=== PATIENT | male | born 1975 | race Caucasian/White ===

== ENCOUNTER 2016-11-20 11:20 | Outpatient (CLI) | payer MEDICAID | END 2016-11-20 11:21 | disposition home or self-care (01) | DX: R17 Unspecified jaundice (principal); K76.0 Fatty (change of) liver, not elsewhere classified ==

== ENCOUNTER 2018-02-19 13:57 | Emergency (ER) | payer MEDICAID ==
[2018-02-19 14:04] VITALS: BP 145/92
--- NOTE | 2018-02-19 14:28 | ED Physician Documentation ---
History of Present Illness - Stated complaint Stated Complaint: TOOTH PX - Chief complaint Chief Complaint: Heent - Additonal information Additional information: hx from pt very nice 42 male present to ED with his he has dental decay he has mild upper left dental pain she looked in his mouth and noted swelling and erythema they are concerned about infection pain is mild - does not want pain meds no fever he has a dental appt next week Review of Systems Constitutional: denies: Fever Throat: reports: Dental pain / toothache Immunocompromised: denies: Immunocompromised PD PAST MEDICAL HISTORY - Past Medical History Past Medical History: Yes Cardiovascular: None Respiratory: None Neuro: None Endocrine/Autoimmune: None GI: None : None HEENT: None Psych: Anxiety Musculoskeletal: None Derm: None - Past Surgical History Past Surgical History: No - Present Medications Home Medications: Ambulatory Orders Medication Instructions Recorded Confirmed Clindamycin [Cleocin] 300 mg PO Q6H 7 Days capsule 02/19/18 - Allergies Allergies/Adverse Reactions: Allergies Allergy/AdvReac Type Severity Reaction Status Date / Time amoxicillin Allergy Rash Verified 02/19/18 14:04 - Social History Does the pt smoke?: Yes Smoking Status: Current every day smoker Does the pt drink ETOH?: Yes Does the pt have substance abuse?: No - Immunizations Immunizations are current?: Yes - POLST Patient has POLST: No PD ED PE NORMAL - Vitals Vital signs reviewed: Yes - HEENT HEENT: No: Dentition benign (diffuse mod decay and gum recession, upper left canine premolar with erythematous tender gums, no abscess to rula, n trismus, no facial swelling) - Cardiac Cardiac: RRR - Respiratory Respiratory: No respiratory distress, Clear bilaterally Results - Vitals Vitals: Vital Signs - 24 hr 02/19/18 14:01 Temperature 36.3 C L Heart Rate 93 Respiratory 15 Rate Blood Pressure 145/92 H O2 Saturation 97 Departure - Departure Disposition: 01 Home, Self Care Clinical Impression: Dental infection Condition: Good Instructions: ED Tooth Pain Prescriptions: Clindamycin [Cleocin] 300 mg PO Q6H 7 Days capsule
== END 2018-02-19 14:38 | disposition home or self-care (01) ==
LOC: ED 13:57
DX: K04.7 Periapical abscess without sinus (principal); F17.200 Nicotine dependence, unspecified, uncomplicated
CPT/HCPCS: 99283

== ENCOUNTER 2023-06-12 10:54 | Emergency (ER) | payer MEDICAID ==
[2023-06-12 11:31] LABS: BASOPHILS % (AUTO) 0.6 %; EOSINOPHILS # (AUTO) 0.1 10^3/uL (0.0-0.7); EOSINOPHILS % (AUTO) 0.9 %; HCT - HEMATOCRIT 31.4 % (42.0-52.0); HGB - HEMOGLOBIN 11.1 g/dL (14.0-18.0); LYMPHOCYTES % (AUTO) 14.9 %; MEAN CORPUSCULAR HEMOGLOBIN 34.5 pg (27.0-31.0); MEAN CORPUSCULAR HGB CONC 35.4 g/dL (32.0-36.0); MEAN CORPUSCULAR VOLUME 97.5 fL (80.0-94.0); MEAN PLATELET VOLUME 8.5 fL (7.4-11.4); MONOCYTES # (AUTO) 0.7 10^3/uL (0.0-1.0); MONOCYTES % (AUTO) 11.3 %; NEUTROPHILS # (AUTO) 4.7 10^3/uL (1.5-6.6); NEUTROPHILS % (AUTO) 71.8 %; PLT - PLATELET COUNT 420 10^3/uL (130-450); RED BLOOD COUNT 3.22 10^6/uL (4.70-6.10); RED CELL DISTRIBUTION WIDTH 12.3 % (12.0-15.0); WHITE BLOOD COUNT 6.6 x10^3/uL (4.8-10.8)
[2023-06-12 11:42] LABS: ALBUMIN 3.4 g/dL (3.2-5.5); BILIRUBIN,TOTAL 2.1 mg/dL (0.2-1.0); CALCIUM 8.9 mg/dL (8.5-10.3); CREATININE 0.8 mg/dL (0.6-1.3); POTASSIUM 3.5 mmol/L (3.5-4.5); TOTAL PROTEIN 6.9 g/dL (6.4-8.9)
--- NOTE | 2023-06-12 11:43 | ED Physician Documentation ---
History of Present Illness - Stated complaint Stated Complaint: LT LEG PX/SWELLING/ANXIETY - Chief complaint Chief Complaint: General - Additonal information Additional information: 47-year-old male returns to the emergency department for evaluation of left leg swelling, petechial/purpuric appearing rash on his bilateral lower extremities, anorexia, fatigue, weight loss and anxiety. He was seen at this emergency department on June 01 for similar. At that time found to have isolated findings of hyponatremia with a sodium of 127 and a mildly elevated bilirubin. Bilateral ultrasounds were negative for DVT in the lower extremities. He was advised follow-up with PCP and to increase salt intake. Since being seen he feels that his anxiety, anorexia are worse. He continues to have a petechial/purpuric appearing rash on his lower extremities that he has had for several months. He is not able to see a PCP until late July. He has been using compression stockings. Over the last 3 to 4 days he has developed bruising on the left medial thigh and below the ankle on the left leg. On presentation he is alert, thin appearing. He appears anxious. He is afebrile. No tachycardia or hypotension. Room air saturations 100%. Review of Systems Constitutional: reports: Fatigue. denies: Fever, Chills Ears: reports: Reviewed and negative Nose: reports: Reviewed and negative Throat: reports: Reviewed and negative Cardiac: reports: Reviewed and negative Respiratory: reports: Reviewed and negative GI: denies: Other (anorexia) : reports: Reviewed and negative Skin: reports: Rash Musculoskeletal: reports: Reviewed and negative Neurologic: reports: Reviewed and negative PD PAST MEDICAL HISTORY - Past Medical History Cardiovascular: None Respiratory: None Endocrine/Autoimmune: None GI: None : None HEENT: None Psych: Anxiety Musculoskeletal: None Derm: None - Past Surgical History Past Surgical History: No - Present Medications Home Medications: Ambulatory Orders Medication Instructions Recorded Confirmed hydrOXYzine pamoate [Hydroxyzine 25 mg PO TID PRN #30 cap 06/12/23 Pamoate] predniSONE [Deltasone] 40 mg PO DAILY 7 Days #14 tablet 06/12/23 - Allergies Allergies/Adverse Reactions: Allergies Allergy/AdvReac Type Severity Reaction Status Date / Time amoxicillin Allergy Rash Verified 06/12/23 11:03 - Social History Does the pt smoke?: Yes Smoking Status: Current every day smoker Does the pt drink ETOH?: Yes Does the pt have substance abuse?: No - Immunizations Immunizations are current?: Yes - POLST Patient has POLST: No PD ED PE NORMAL - General General: Alert and oriented X 3. No: No acute distress (anxious) - HEENT HEENT: Atraumatic, Moist mucous membranes - Neck Neck: Supple, no meningeal sign, No adenopathy - Cardiac Cardiac: RRR, No murmur, No gallop - Respiratory Respiratory: No respiratory distress, Clear bilaterally - Abdomen Abdomen: Normal bowel sounds, Soft - Back Back: No CVA TTP - Derm Derm: Normal color, Warm and dry. No: No rash (Flat nonblanchable petechiae/purpura of the bilateral lower extremities measuring between 2 and 4 mm. Nonvesicular. Nonpainful. Ecchymosis noted left medial thigh and below the left ankle) - Extremities Extremities: No deformity, No tenderness to palpate, No edema (Mild swelling noted of the left leg), No calf tenderness / cord - Neuro Neuro: Alert and oriented X 3, irrigation foreman 2-12 intact Eye Opening: Spontaneous Motor: Obeys Commands Verbal: Oriented GCS Score: 15 Results - Vitals Vitals: Vital Signs - 24 hr 06/12/23 10:59 Temperature 36.4 C L Heart Rate 98 Respiratory 20 Rate Blood Pressure 136/78 H O2 Saturation 100 Oxygen O2 Source Room air - Labs Labs: Laboratory Tests 06/12/23 06/12/23 06/12/23 11:20 11:20 11:20 WBC 6.6 RBC 3.22 L Hgb 11.1 L Hct 31.4 L MCV 97.5 H MCH 34.5 H MCHC 35.4 RDW 12.3 Plt Count 420 MPV 8.5 Neut # (Auto) 4.7 Lymph # (Auto) 1.0 L [place] # (Auto) 0.7 Eos # (Auto) 0.1 Baso # (Auto) 0.0 Absolute Nucleated RBC 0.00 Nucleated RBC % 0.0 ESR Sodium 127 L Potassium 3.5 Chloride 97 L Carbon Dioxide 21 Anion Gap 9.0 BUN 9 Creatinine 0.8 Estimated GFR (MDRD) 103 Glucose 114 H Calcium 8.9 Total Bilirubin 2.1 H AST 18 ALT 13 Alkaline Phosphatase 59 C-Reactive Protein B-Natriuretic Peptide 54 Total Protein 6.9 Albumin 3.4 Globulin 3.5 Albumin/Globulin Ratio 1.0 Lipase 16 TSH Free T4 Direct Urine Color Urine Clarity Urine pH Ur Specific [place] Urine Protein Urine Glucose (UA) Urine Ketones Urine Occult Blood Urine Nitrite Urine Bilirubin Urine Urobilinogen Ur Leukocyte Esterase Urine RBC Urine WBC Ur Squamous Epith Cells Urine Bacteria Ur Microscopic Review Urine Culture Comments 06/12/23 06/12/23 06/12/23 11:20 11:20 12:23 WBC RBC Hgb Hct MCV MCH MCHC RDW Plt Count MPV Neut # (Auto) Lymph # (Auto) [place] # (Auto) Eos # (Auto) Baso # (Auto) Absolute Nucleated RBC Nucleated RBC % ESR 46 H Sodium Potassium Chloride Carbon Dioxide Anion Gap BUN Creatinine Estimated GFR (MDRD) Glucose Calcium Total Bilirubin AST ALT Alkaline Phosphatase C-Reactive Protein 8.3 B-Natriuretic Peptide Total Protein Albumin Globulin Albumin/Globulin Ratio Lipase TSH 2.71 Free T4 Direct 0.77 Urine Color Urine Clarity Urine pH Ur Specific [place] Urine Protein Urine Glucose (UA) Urine Ketones Urine Occult Blood Urine Nitrite Urine Bilirubin Urine Urobilinogen Ur Leukocyte Esterase Urine RBC Urine WBC Ur Squamous Epith Cells Urine Bacteria Ur Microscopic Review Urine Culture Comments 06/12/23 12:47 WBC RBC Hgb Hct MCV MCH MCHC RDW Plt Count MPV Neut # (Auto) Lymph # (Auto) [place] # (Auto) Eos # (Auto) Baso # (Auto) Absolute Nucleated RBC Nucleated RBC % ESR Sodium Potassium Chloride Carbon Dioxide Anion Gap BUN Creatinine Estimated GFR (MDRD) Glucose Calcium Total Bilirubin AST ALT Alkaline Phosphatase C-Reactive Protein B-Natriuretic Peptide Total Protein Albumin Globulin Albumin/Globulin Ratio Lipase TSH Free T4 Direct Urine Color DARK YELLOW Urine Clarity CLEAR Urine pH 5.5 Ur Specific [place] 1.020 Urine Protein NEGATIVE Urine Glucose (UA) NEGATIVE Urine Ketones NEGATIVE Urine Occult Blood SMALL H Urine Nitrite NEGATIVE Urine Bilirubin NEGATIVE Urine Urobilinogen 1 (NORMAL) Ur Leukocyte Esterase NEGATIVE Urine RBC 0-5 Urine WBC 0-3 Ur Squamous Epith Cells NONE SEEN Urine Bacteria Rare Ur Microscopic Review INDICATED Urine Culture Comments NOT INDICATED - Rads (name of study) cxr Relevant Findings:: EMP independent interpretation of test (No acute cardiopulmonary process) PD Medical Decision Making - ED course Complexity details: reviewed results, re-evaluated patient, considered differential, d/w patient ED course: 47-year-old male return to the emergency department for evaluation of left leg swelling, petechiae/purpura of the bilateral lower extremities, anorexia and fatigue and anxiety. Seen on June 01 for similar found to have mild hyponatremia and a mildly elevated bilirubin. Patient has not yet been able to establish care with a PCP. On presentation the emergency department he is anxious though otherwise well- appearing. He had unremarkable vital signs without fever tachycardia or hypotension. Clinical exam reveals diffuse petechiae/purpura on the bilateral lower extremities that are subacute and have been present for many months. He has however developed over the last week some bruising of the left medial thigh and bruising below the left ankle. When seen last week he was noted to have a mild hyponatremia with a sodium of 127. His labs were otherwise benign with no anemia. Today I repeated CBC, electrolytes, CRP, sed rate, added SUPRIYA and complement as well as urinalysis. Today I note he has developed a new anemia with a hemoglobin of 11.1. No thrombocytopenia. He has an elevated sed rate of 46 and a CRP of 8.3. He continues to have a mild hyponatremia with a sodium of 127. Normal renal function. Bilirubin today is 2.1 mildly reduced from last week at 2.3. His TSH and T4 were both normal. Urinalysis today shows no signs of infection and no proteinuria. 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 Complement and C4 are pending. He is given the name of Jessenia Augustin the physician assigned to see patient as an ER follow-up this upcoming week. Would like his labs to be repeated. In order to begin treatment of the vasculitis he will be started on a week of the prednisone 40 mg each day. The patient is also complaining of anxiety. He was given a single dose of hydroxyzine today in the emergency department which she felt improved the symptoms. The usual emergent return precautions were discussed for failure symptoms to resolve or markedly worsen It should be noted that in the initial ED encounter on June 01 he did have bilateral lower extremity ultrasounds which did not show any evidence of DVT. Departure - Departure Disposition: 01 Home, Self Care Clinical Impression: Hyponatremia, Elevated bilirubin, Vasculitis, Anxiety Anemia Qualifiers: Anemia type: unspecified type Qualified Code(s): D64.9 - Anemia, unspecified Follow-Up: Юлия Augustin MD [Provider Admit Priv/Credential] - Prescriptions: predniSONE [Deltasone] 40 mg PO DAILY 7 Days #14 tablet hydrOXYzine pamoate [Hydroxyzine Pamoate] 25 mg PO TID PRN #30 cap PRN Reason: Anxiety Comments: Fermin dunn came to the emergency department today because you continue to have some swelling of the left leg, new bruising, anxiety, anorexia and fatigue. You have had a subacute rash on both your lower extremities that resembles a condition called vasculitis. I rechecked your labs today and you have developed a new anemia with a hemoglobin of 11.1. Several weeks ago it was 15. Your potassium today is normal. Your sodium was 127 which is unchanged. I did check some inflammatory markers including an ESR and CRP today. These are both elevated. Because vasculitis can be caused by other conditions you have pending labs called an SUPRIYA as well as a complement. We will not have these results for us several days. My concern is that the vasculitis could be contributing to the rash, anemia and fatigue as well as the hyponatremia. This is not a definitive diagnosis it is merely my suspicion at this point but I think it would be safe to assume you have developed a vasculitis and start you on a course of steroids. As such I have ordered prednisone to be taken daily for the next week. I have also ordered hydroxyzine that you can use 2-3 times a day to the help with anxiety. I have given the name of Jessenia Augustin physician in [place] who is scheduled to see patients in follow-up this week for the ER. When you call that clinic let them know it is an ER follow-up. It is important that you have your labs rechecked in this week in regards to your anemia. If you are unable to follow-up with your primary care doctor this can be done through one of the local walk-in clinics. I suspect in the future you are going to require referral to a room service food server. And this referral will have to be done through a primary care doctor. Please return to the ER if you find that you are having worsening symptoms. Forms: PCP List
[2023-06-12 12:05] LABS: CRP - C-REACTIVE PROTEIN 8.3 mg/dL (<0.5)
--- NOTE | 2023-06-12 12:06 | XRAY Report ---
PROCEDURE: Chest 1 View X-Ray INDICATIONS: leg swelling TECHNIQUE: One view of the chest was acquired. COMPARISON: None. FINDINGS: Surgical changes and devices: None. Lungs and pleura: No pleural effusions or pneumothorax. Lungs are clear. Mediastinum: Mediastinal contours appear normal. Heart size is normal. Bones and chest wall: No suspicious bony lesions. Overlying soft tissues appear unremarkable. IMPRESSION: No acute cardiopulmonary process. Reviewed by: Giovanni Luis MD on 06/12/2023 11:05 AM RICKEY Approved by: Giovanni Luis MD on 06/12/2023 11:05 AM RICKEY Station ID: [id number]
[2023-06-12] MEDS ORDERED: hydrOXYzine PAMOATE 25 MG CAPSULE PO STA (12:27)
[2023-06-12 12:59] LABS: BILIRUBIN,URINE NEGATIVE (NEGATIVE); GLUCOSE, URINE (UA) NEGATIVE (NEGATIVE); KETONES,URINE (UA) NEGATIVE (NEGATIVE); LEUKOCYTE ESTERASE, URINE NEGATIVE (NEGATIVE); NITRITE,URINE NEGATIVE (NEGATIVE); OCCULT BLOOD,URINE SMALL (NEGATIVE); PH,URINE 5.5 PH (5.0-7.5); PROTEIN,URINE NEGATIVE (NEGATIVE); UROBILINOGEN,URINE 1 (NORMAL) E.U./dL (NORMAL)
[2023-06-12 13:12] LABS: BACTERIA,URINE Rare /HPF (None Seen); CLARITY,URINE CLEAR (CLEAR); RBC,URINE 0-5 /HPF (0-5); SQUAMOUS EPITHELIAL CELL,UR NONE SEEN (<= Few); WBC,URINE 0-3 /HPF (0-3)
[2023-06-12 14:18] VITALS: BP 128/82
[2023-06-15 15:08] LABS: ANTI-DNA (DS) AB QN <1 IU/mL (0-9); CENTROMERE B ANTIBODIES <0.2 AI (0.0-0.9); CHROMATIN ANTIBODIES <0.2 AI (0.0-0.9); JO-1 AB <0.2 AI (0.0-0.9); RIBOSOMAL P ANTIBODIES <0.2 AI (0.0-0.9); RNP ANTIBODIES <0.2 AI (0.0-0.9); SCLERODERMA-70 ANTIBODIES 1.8 AI (0.0-0.9); SJOGREN'S ANTI-SS-A <0.2 AI (0.0-0.9); SJOGREN'S ANTI-SS-B <0.2 AI (0.0-0.9); SMITH ANTIBODIES <0.2 AI (0.0-0.9); SMITH/RNP ANTIBODIES <0.2 AI (0.0-0.9)
== END 2023-06-12 14:12 | disposition home or self-care (01) ==
LOC: ED 10:54
DX: I77.6 Arteritis, unspecified (principal); D64.9 Anemia, unspecified; E87.1 Hypo-osmolality and hyponatremia; E80.7 Disorder of bilirubin metabolism, unspecified; R53.83 Other fatigue; F41.9 Anxiety disorder, unspecified; F17.200 Nicotine dependence, unspecified, uncomplicated
CPT/HCPCS: 36415; 71045; 80053; 81001; 83690; 83880; 84439; 84443; 85025; 85651; 86140; 86160; 86225; 86235; 99284; A9270; 81003; 83516; 87086

== ENCOUNTER 2023-06-17 13:11 | Outpatient (CLI) | payer MEDICAID ==
[2023-06-17 13:42] LABS: BILIRUBIN,URINE NEGATIVE (NEGATIVE); GLUCOSE, URINE (UA) NEGATIVE (NEGATIVE); KETONES,URINE (UA) NEGATIVE (NEGATIVE); LEUKOCYTE ESTERASE, URINE NEGATIVE (NEGATIVE); NITRITE,URINE NEGATIVE (NEGATIVE); OCCULT BLOOD,URINE NEGATIVE (NEGATIVE); PH,URINE 5.5 PH (5.0-7.5); PROTEIN,URINE NEGATIVE (NEGATIVE); UROBILINOGEN,URINE 0.2 (NORMAL) E.U./dL (NORMAL)
[2023-06-17 13:45] LABS: ABSOLUTE RETICS # AUTO 0.133 10^6/uL (0.020-0.110); BASOPHILS # (AUTO) 0.1 10^3/uL (0.0-0.1); BASOPHILS % (AUTO) 0.8 %; EOSINOPHILS # (AUTO) 0.1 10^3/uL (0.0-0.7); HGB - HEMOGLOBIN 9.9 g/dL (14.0-18.0); LYMPHOCYTES # (AUTO) 1.8 10^3/uL (1.5-3.5); LYMPHOCYTES % (AUTO) 28.6 %; MEAN CORPUSCULAR HEMOGLOBIN 33.4 pg (27.0-31.0); MEAN CORPUSCULAR VOLUME 101.4 fL (80.0-94.0); MEAN PLATELET VOLUME 8.3 fL (7.4-11.4); MONOCYTES # (AUTO) 0.7 10^3/uL (0.0-1.0); MONOCYTES % (AUTO) 11.9 %; NEUTROPHILS # (AUTO) 3.5 10^3/uL (1.5-6.6); NEUTROPHILS % (AUTO) 57.4 %; PLT - PLATELET COUNT 605 10^3/uL (130-450); RED BLOOD COUNT 2.96 10^6/uL (4.70-6.10); WHITE BLOOD COUNT 6.1 x10^3/uL (4.8-10.8)
[2023-06-17 13:56] LABS: CLARITY,URINE CLEAR (CLEAR)
[2023-06-17 13:57] LABS: BACTERIA,URINE None Seen /HPF (None Seen); RBC,URINE None Seen /HPF (0-5); SQUAMOUS EPITHELIAL CELL,UR NONE SEEN (<= Few); WBC,URINE 0-3 /HPF (0-3)
[2023-06-17 14:02] LABS: ALBUMIN 3.7 g/dL (3.2-5.5); BILIRUBIN,TOTAL 1.8 mg/dL (0.2-1.0); CALCIUM 8.8 mg/dL (8.5-10.3); CREATININE 0.6 mg/dL (0.6-1.3); POTASSIUM 3.5 mmol/L (3.5-4.5); TOTAL PROTEIN 7.5 g/dL (6.4-8.9)
[2023-06-17 14:23] LABS: FERRITIN 408.2 ng/mL (23.9-336.2)
== END 2023-06-17 13:12 | disposition home or self-care (01) ==
LOC: LAB 13:11
PROVIDERS: ATTEND Emergency Medicine
DX: D64.9 Anemia, unspecified (principal); R17 Unspecified jaundice; I77.6 Arteritis, unspecified
CPT/HCPCS: 36415; 80053; 81001; 82607; 82728; 82746; 83540; 83690; 84466; 85025; 85045; 87086

== ENCOUNTER 2023-06-17 16:01 | Emergency (ER) | payer MEDICAID ==
--- NOTE | 2023-06-17 16:25 | ED Physician Documentation ---
History of Present Illness - Stated complaint Stated Complaint: ABNORMAL LAB WORK - Chief complaint Chief Complaint: General - History obtained from History obtained from: Patient Review of Systems Constitutional: denies: Fever, Chills Ears: denies: Loss of hearing Cardiac: denies: Chest pain / pressure, Palpitations, Calf pain Respiratory: denies: Dyspnea, Cough, Wheezing GI: denies: Abdominal Pain, Nausea, Vomiting Musculoskeletal: denies: Neck pain, Back pain, Extremity pain Neurologic: denies: Generalized weakness, Focal weakness, Numbness PD PAST MEDICAL HISTORY - Past Medical History Cardiovascular: None Respiratory: None Endocrine/Autoimmune: None GI: None : None HEENT: None Psych: Anxiety Musculoskeletal: None Derm: None - Past Surgical History Past Surgical History: No - Present Medications Home Medications: Ambulatory Orders Medication Instructions Recorded Confirmed hydrOXYzine pamoate [Hydroxyzine 25 mg PO TID PRN #30 cap 06/12/23 06/17/23 Pamoate] predniSONE [Deltasone] 40 mg PO DAILY 7 Days #14 tablet 06/12/23 06/17/23 - Allergies Allergies/Adverse Reactions: Allergies Allergy/AdvReac Type Severity Reaction Status Date / Time amoxicillin Allergy Rash Verified 06/12/23 11:03 - Social History Does the pt smoke?: Yes Smoking Status: Current every day smoker Does the pt drink ETOH?: Yes Does the pt have substance abuse?: No - Immunizations Immunizations are current?: Yes - POLST Patient has POLST: No PD ED PE NORMAL - Vitals Vital signs reviewed: Yes - General General: Alert and oriented X 3, Well developed/nourished, Other (appears frail, older than stated age) - Cardiac Cardiac: RRR, No murmur, Strong equal pulses - Abdomen Abdomen: Soft, Non tender, Non distended - Derm Derm: Normal color, Warm and dry, Other (petichial rash on legs, similar to previous) - Extremities Extremities: No deformity, No tenderness to palpate - Neuro Neuro: Alert and oriented X 3, engraved roller inspector 2-12 intact, No motor deficit, Normal speech - Psych Psych: Normal mood, Normal affect Results - Vitals Vitals: Vital Signs - 24 hr 06/17/23 06/17/23 16:06 19:12 Temperature 36.7 C Heart Rate 96 Respiratory 20 18 Rate Blood Pressure 157/76 H 134/89 H O2 Saturation 100 94 Oxygen O2 Source Room air - Labs Labs: Laboratory Tests 06/17/23 06/17/23 06/17/23 16:50 16:50 16:50 WBC 5.5 RBC 2.77 L Hgb 9.2 L Hct 27.7 L MCV 100.0 H MCH 33.2 H MCHC 33.2 RDW 13.0 Plt Count 485 H MPV 7.7 Neut # (Auto) 3.0 Lymph # (Auto) 1.9 [place] # (Auto) 0.6 Eos # (Auto) 0.1 Baso # (Auto) 0.0 Absolute Nucleated RBC 0.00 Nucleated RBC % 0.0 PT INR Sodium 128 L Potassium 3.3 L Chloride 95 L Carbon Dioxide 27 Anion Gap 6.0 BUN 10 Creatinine 0.7 Estimated GFR (MDRD) 120 Glucose 86 Calcium 9.6 Total Bilirubin 2.0 H AST 25 ALT 20 Alkaline Phosphatase 63 Lactate Dehydrogenase 97 L Total Protein 8.5 Albumin 4.1 Globulin 4.4 H Albumin/Globulin Ratio 0.9 L 06/17/23 16:50 WBC RBC Hgb Hct MCV MCH MCHC RDW Plt Count MPV Neut # (Auto) Lymph # (Auto) [place] # (Auto) Eos # (Auto) Baso # (Auto) Absolute Nucleated RBC Nucleated RBC % PT 12.3 INR 1.1 Sodium Potassium Chloride Carbon Dioxide Anion Gap BUN Creatinine Estimated GFR (MDRD) Glucose Calcium Total Bilirubin AST ALT Alkaline Phosphatase Lactate Dehydrogenase Total Protein Albumin Globulin Albumin/Globulin Ratio PD Medical Decision Making - ED course Complexity details: reviewed old records, reviewed results, re-evaluated patient, considered differential, d/w patient, d/w family, d/w PMD, d/w golf tournament consultant ED course: 47-year-old male presenting for anemia. Patient has recently been referred to heme-onc for possible hemolytic anemia. Patient appears much better than his laboratory work seems, he states that this is the best he has felt in months and he is eating more and sleeping better. Hemodynamically stable, he denies black tarry stools or blood in his stools. Lab results from the last month have been extensively evaluated. We will repeat here, will obtain chest x-ray and obtain CT of the abdomen and pelvis. Patient has had occult blood in his urine for several visits, and PCP tells me that there is also a possible concern for leukemia. Laboratory work is reviewed. Patient is anemic with hemoglobin 9.2. Platelets are 400s.Chest x-ray and CT of the abdomen and pelvis are unremarkable. Patien t's bilirubin is elevated, at baseline when compared to previous. Sodium remains decreased at 127, this could possibly be patient's baseline. The patient's case was discussed extensively with heme-onc at [facility]. At this time patient is hemodynamically stable, denying any complaints, however he has had a significant drop in hemoglobin in the last 2 weeks. There does not appear to be a source of hemorrhage or clear-cut cause for his anemia. Heme-onc specialist agrees that patient does not meet admission criteria, but does need to be seen on an urgent basis. She will reach out to her clinic to see if the patient can be seen in [place] on an urgent basis, however if no appointments are available he should be seen first thing Tuesday with his primary care physician. Patient and his sister were counseled at bedside extensively of the results of labs and imaging and the plan. They were told that if they are not able to obtain an urgent appointment at [facility] they should return to the emergency department for repeat labs to ensure that his blood counts have not dropped below 7. He was also given strict return precautions such as chest pain, shortness of breath, lightheadedness, weakness. [place] [facility] provided in discharge paperwork. Patient and his sister expressed understanding of the plan and in agreement at this time. All questions answered at time of discharge. Departure - Departure Disposition: 01 Home, Self Care Clinical Impression: Anemia Condition: Stable Instructions: Anemia Comments: Today you are seen for anemia. You are anemic today, and the cause is yet to be determined. Right now you do not need a blood transfusion, however if you notice that you are having chest pains, or feeling short of breath, weak, or lightheaded you should return to the emergency department for repeat blood counts to make sure that you do not need a transfusion. Call first thing Tuesday morning to follow-up with a hematology engineering technical specialist. [facility] [phone] F/U IMMEDIATELY WITH PCP/WALK-IN CLINIC Forms: PCP List
[2023-06-17 16:55] LABS: BASOPHILS % (AUTO) 0.7 %; EOSINOPHILS # (AUTO) 0.1 10^3/uL (0.0-0.7); EOSINOPHILS % (AUTO) 1.3 %; HCT - HEMATOCRIT 27.7 % (42.0-52.0); HGB - HEMOGLOBIN 9.2 g/dL (14.0-18.0); LYMPHOCYTES # (AUTO) 1.9 10^3/uL (1.5-3.5); LYMPHOCYTES % (AUTO) 33.6 %; MEAN CORPUSCULAR HEMOGLOBIN 33.2 pg (27.0-31.0); MEAN CORPUSCULAR HGB CONC 33.2 g/dL (32.0-36.0); MEAN PLATELET VOLUME 7.7 fL (7.4-11.4); MONOCYTES # (AUTO) 0.6 10^3/uL (0.0-1.0); MONOCYTES % (AUTO) 9.9 %; NEUTROPHILS % (AUTO) 54.3 %; PLT - PLATELET COUNT 485 10^3/uL (130-450); RED BLOOD COUNT 2.77 10^6/uL (4.70-6.10); WHITE BLOOD COUNT 5.5 x10^3/uL (4.8-10.8)
[2023-06-17 17:02] LABS: INR 1.1 (0.8-1.2); PT - PROTHROMBIN TIME 12.3 secs (9.9-12.6)
[2023-06-17 17:09] LABS: ALBUMIN 4.1 g/dL (3.2-5.5); ALBUMIN/GLOBULIN RATIO 0.9 (1.0-2.2); CALCIUM 9.6 mg/dL (8.5-10.3); CREATININE 0.7 mg/dL (0.6-1.3); POTASSIUM 3.3 mmol/L (3.5-4.5); TOTAL PROTEIN 8.5 g/dL (6.4-8.9)
--- NOTE | 2023-06-17 18:05 | XRAY Report ---
PROCEDURE: Chest 1 View X-Ray INDICATIONS: ANEMIA/ANOREXIA TECHNIQUE: One view of the chest was acquired. COMPARISON: Chest x-ray 06/12/2023 FINDINGS: Surgical changes and devices: None. Lungs and pleura: No pleural effusions or pneumothorax. Lungs are clear. Mediastinum: Mediastinal contours appear normal. Heart size is normal. Bones and chest wall: No suspicious bony lesions. Overlying soft tissues appear unremarkable. IMPRESSION: No acute cardiopulmonary process. Reviewed by: Tito Jones MD on 06/17/2023 6:04 PM PDT Approved by: Tito Jones MD on 06/17/2023 6:04 PM PDT Station ID: [id number]
--- NOTE | 2023-06-17 20:00 | CT Report ---
PROCEDURE: ABDOMEN/PELVIS W INDICATIONS: hematuria CONTRAST: 100ml omni 300 TECHNIQUE: After the administration of intravenous contrast, 5 mm thick sections acquired from the diaphragms to the symphysis. 5 mm thick coronal and sagittal reformats were acquired. For radiation dose reducti on, the following was used: automated exposure control, adjustment of mA and/or kV according to latoya ent size. COMPARISON: None FINDINGS: Image quality: Excellent. Lung bases and heart: Unremarkable. Liver: No solid mass. Gallbladder and biliary tree: The gallbladder is contracted, limiting evaluation. No biliary duct dil atation. No calcified gallstones seen. Spleen: No splenomegaly. Splenules are noted. Pancreas: No pancreatic ductal dilation. Adrenals: No adrenal nodule. Kidneys and ureters: No hydronephrosis. No renal cystic lesion which requires follow up. No solid mas s. Bowel and peritoneum: No bowel distension. No pathologic free fluid. Lymph nodes: No central or retroperitoneal adenopathy. Vessels: No infrarenal aortic aneurysm. Mild atherosclerotic vascular calcific patient. PELVIS Reproductive organs: Unremarkable. Bladder: No abnormal wall thickening, accounting for underdistension. Pelvic lymph nodes: No pelvic adenopathy by size criteria. Bones: No aggressive osseous abnormality. Other: No significant ventral or inguinal hernia. IMPRESSION: The kidneys are normal in appearance without stones or hydronephrosis. The bladder is mildly distende d, otherwise normal in appearance. Reviewed by: Tito Jones MD on 06/17/2023 7:59 PM PDT Approved by: Tito Jones MD on 06/17/2023 7:59 PM PDT Station ID: [id number]
[2023-06-17] MEDS ORDERED: iohexoL-300 100 ML VIAL IVP ONE (20:55)
[2023-06-17 21:04] VITALS: BP 136/90
== END 2023-06-17 20:57 | disposition home or self-care (01) ==
LOC: ED 16:01
DX: D64.9 Anemia, unspecified (principal); F17.200 Nicotine dependence, unspecified, uncomplicated; R17 Unspecified jaundice; I77.6 Arteritis, unspecified
CPT/HCPCS: 36415; 80053; 81001; 82607; 82728; 82746; 83010; 83540; 83615; 83690; 84466; 85025; 85045; 85610; 87086; 99283; 99284

== ENCOUNTER 2023-08-03 08:07 | Outpatient (CLI) | payer MEDICAID ==
[2023-08-03 08:44] LABS: BASOPHILS % (AUTO) 0.2 %; EOSINOPHILS # (AUTO) 0.2 10^3/uL (0.0-0.7); EOSINOPHILS % (AUTO) 3.4 %; HCT - HEMATOCRIT 43.7 % (42.0-52.0); HGB - HEMOGLOBIN 14.8 g/dL (14.0-18.0); LYMPHOCYTES # (AUTO) 1.3 10^3/uL (1.5-3.5); LYMPHOCYTES % (AUTO) 29.5 %; MEAN CORPUSCULAR HEMOGLOBIN 32.8 pg (27.0-31.0); MEAN CORPUSCULAR HGB CONC 33.9 g/dL (32.0-36.0); MEAN CORPUSCULAR VOLUME 96.9 fL (80.0-94.0); MEAN PLATELET VOLUME 8.7 fL (7.4-11.4); MONOCYTES # (AUTO) 0.5 10^3/uL (0.0-1.0); MONOCYTES % (AUTO) 10.4 %; NEUTROPHILS # (AUTO) 2.5 10^3/uL (1.5-6.6); NEUTROPHILS % (AUTO) 56.3 %; PLT - PLATELET COUNT 234 10^3/uL (130-450); RED BLOOD COUNT 4.51 10^6/uL (4.70-6.10); RED CELL DISTRIBUTION WIDTH 12.2 % (12.0-15.0); WHITE BLOOD COUNT 4.4 x10^3/uL (4.8-10.8)
== END 2023-08-03 08:08 | disposition home or self-care (01) ==
LOC: LAB 08:07
PROVIDERS: ATTEND Nurse Practitioner Acute Care
DX: R17 Unspecified jaundice (principal); D64.9 Anemia, unspecified; E87.6 Hypokalemia; E87.1 Hypo-osmolality and hyponatremia; D75.839 Thrombocytosis, unspecified
CPT/HCPCS: 36415; 85025

== ENCOUNTER 2024-07-13 08:19 | Outpatient (CLI) | payer MEDICAID ==
[2024-07-13 08:33] LABS: BASOPHILS % (AUTO) 0.6 %; EOSINOPHILS # (AUTO) 0.2 10^3/uL (0.0-0.7); EOSINOPHILS % (AUTO) 4.4 %; HCT - HEMATOCRIT 45.4 % (42.0-52.0); HGB - HEMOGLOBIN 15.8 g/dL (14.0-18.0); LYMPHOCYTES # (AUTO) 1.5 10^3/uL (1.5-3.5); LYMPHOCYTES % (AUTO) 31.8 %; MEAN CORPUSCULAR HEMOGLOBIN 34.7 pg (27.0-31.0); MEAN CORPUSCULAR HGB CONC 34.8 g/dL (32.0-36.0); MEAN CORPUSCULAR VOLUME 99.8 fL (80.0-94.0); MEAN PLATELET VOLUME 8.1 fL (7.4-11.4); MONOCYTES # (AUTO) 0.5 10^3/uL (0.0-1.0); MONOCYTES % (AUTO) 9.7 %; NEUTROPHILS # (AUTO) 2.5 10^3/uL (1.5-6.6); NEUTROPHILS % (AUTO) 53.3 %; PLT - PLATELET COUNT 230 10^3/uL (130-450); RED BLOOD COUNT 4.55 10^6/uL (4.70-6.10); RED CELL DISTRIBUTION WIDTH 12.4 % (12.0-15.0); WHITE BLOOD COUNT 4.8 x10^3/uL (4.8-10.8)
[2024-07-13 08:36] LABS: BILIRUBIN,URINE NEGATIVE (NEGATIVE); GLUCOSE, URINE (UA) NEGATIVE (NEGATIVE); KETONES,URINE (UA) NEGATIVE (NEGATIVE); LEUKOCYTE ESTERASE, URINE NEGATIVE (NEGATIVE); NITRITE,URINE NEGATIVE (NEGATIVE); OCCULT BLOOD,URINE NEGATIVE (NEGATIVE); PROTEIN,URINE NEGATIVE (NEGATIVE); UROBILINOGEN,URINE 0.2 (NORMAL) E.U./dL (NORMAL)
[2024-07-13 08:45] LABS: BACTERIA,URINE Rare /HPF (None Seen); CLARITY,URINE CLEAR (CLEAR); RBC,URINE None Seen /HPF (0-5); SQUAMOUS EPITHELIAL CELL,UR RARE Squamous (<= Few); WBC,URINE 0-3 /HPF (0-3)
[2024-07-13 08:48] LABS: ALBUMIN 4.2 g/dL (3.2-5.5); ALBUMIN/GLOBULIN RATIO 1.4 (1.0-2.2); ALKALINE PHOSPHATASE 48 IU/L (42-121); ALT ALANINE AMINOTRANSFERASE 19 IU/L (10-60); AST ASPARTATE AMINOTRANSFERASE 26 IU/L (10-42); BILIRUBIN,TOTAL 1.9 mg/dL (0.2-1.0); BUN - BLOOD UREA NITROGEN 12 mg/dL (6-20); CALCIUM 9.6 mg/dL (8.5-10.3); CARBON DIOXIDE - CO2 28 mmol/L (21-32); CHLORIDE 99 mmol/L (101-111); CHOL/HDL RATIO 2.4 (<5.0); CHOLESTEROL 175 mg/dL; CREATININE 0.7 mg/dL (0.6-1.3); GFR - MDRD 119 (>89); GLUCOSE 135 mg/dL (74-104); HDL CHOLESTEROL 72 mg/dL; LDL CHOLESTEROL,CALCULATED 78 mg/dL; LDL/HDL RATIO 1.1 (<3.6); POTASSIUM 3.6 mmol/L (3.5-4.5); SODIUM 134 mmol/L (135-145); TOTAL PROTEIN 7.2 g/dL (6.4-8.9); TRIGLYCERIDES 125 mg/dL; VLDL CHOLESTEROL 25 mg/dL
[2024-07-13 09:04] LABS: THYROID STIMULATING HORMONE 2.03 uIU/mL (0.34-5.60)
== END 2024-07-13 08:20 | disposition home or self-care (01) ==
LOC: LAB 08:19
PROVIDERS: ATTEND Nurse Practitioner Acute Care
DX: E87.1 Hypo-osmolality and hyponatremia (principal); R17 Unspecified jaundice; R31.29 Other microscopic hematuria; D75.89 Other specified diseases of blood and blood-forming organs; D52.0 Dietary folate deficiency anemia; Z12.5 Encounter for screening for malignant neoplasm of prostate; Z13.228 Encounter for screening for other metabolic disorders; Z13.220 Encounter for screening for lipoid disorders; Z13.29 Encounter for screening for other suspected endocrine disorder; Z13.0 Encounter for screening for diseases of the blood and blood-forming organs and certain disorders involving the immune mechanism
CPT/HCPCS: 36415; 80053; 80061; 81001; 82746; 83721; 84153; 84443; 85025; 87086

== ENCOUNTER 2024-07-20 07:17 | Outpatient (CLI) | payer MEDICAID ==
--- NOTE | 2024-07-20 15:54 | CT Report ---
PROCEDURE: Lung Cancer Screen INDICATIONS: SCREENING FOR LUNG CA TECHNIQUE: A CT scan of the chest was performed. Intravenous contrast media was not administered. Images were re corded and evaluated at appropriate window settings. Reformats: axial MIP of the chest, coronal and s agittal. For radiation dose reduction, the following was used: automated exposure control, adjustment of mA and/or kV according to patient size. COMPARISON: None. FINDINGS: Image quality: Excellent. Prior cancer history: None known Lungs and pleura: No pleural effusions. No pneumothorax. No suspicious pulmonary nodules which requi re follow up. 3 mm juxtapleural nodule in the left major fissure. Mediastinum: Heart size is normal. No pericardial effusion. No large vessel abnormality. No mediastin al adenopathy by size criteria. Chest wall and lower neck: Thyroid is unremarkable. No axillary or supraclavicular adenopathy by size . Bones: No aggressive osseous abnormality. Upper Abdomen: Small hiatal hernia.. IMPRESSION: Lung RAD: LUNG RADS 2, BENIGN Recommendation: Recommend low-dose CT chest in 12 months if meets criteria Non-Lung Significant Findings: . Small hiatal hernia Reviewed by: Matteo Stephenson MD on 07/20/2024 3:53 PM PDT Approved by: Matteo Stephenson MD on 07/20/2024 3:53 PM PDT Station ID: [id number]
== END 2024-07-20 07:18 | disposition home or self-care (01) ==
LOC: DI 07:17
PROVIDERS: ATTEND Nurse Practitioner Acute Care
DX: Z12.2 Encounter for screening for malignant neoplasm of respiratory organs (principal); K44.9 Diaphragmatic hernia without obstruction or gangrene